=== PATIENT | male | born 1955 | race Caucasian/White ===

== ENCOUNTER → 2016-05-23 | Outpatient (REF) | payer OTHER ==
[2016-05-23 12:16] LABS: ALBUMIN 4.1 GM/DL (3.2-5.2); ALBUMIN/GLOBULIN RATIO 1.46 (1.00-1.93); ALKALINE PHOSPHATASE 60 U/L (45-117); ALT/SGPT 49 U/L (12-78); ANION GAP 8 MEQ/L (8-16); AST/SGOT 19 U/L (15-37); BILIRUBIN,TOTAL 0.5 MG/DL (0.2-1.0); BLOOD UREA NITROGEN 20 MG/DL (7-18); CARBON DIOXIDE LEVEL 30 MEQ/L (21-32); CHLORIDE LEVEL 104 MEQ/L (98-107); CHOLESTEROL LEVEL 165 MG/DL (<200); CREATININE FOR GFR 0.99 MG/DL (0.70-1.30); GLOMERULAR FILTRATION RATE > 60.0 (>56); GLUCOSE, FASTING 98 MG/DL (70-105); POTASSIUM SERUM 4.1 MEQ/L (3.5-5.1); SODIUM LEVEL 142 MEQ/L (136-145); TOTAL PROTEIN 6.9 GM/DL (6.4-8.2); TRIGLYCERIDES LEVEL 143 MG/DL (<150)
== END | disposition home or self-care (01) ==
LOC: M SFHCPLAZ 08:25
PROVIDERS: ATTEND Family Medicine
DX: E78.2 Mixed hyperlipidemia (principal); R73.01 Impaired fasting glucose; N41.1 Chronic prostatitis; E03.9 Hypothyroidism, unspecified
CPT/HCPCS: 36415; 80053; 80061; 82550; 83036; 84443; 86140; G0103

== ENCOUNTER → 2016-10-10 | Outpatient (REF) | payer OTHER ==
[2016-10-10 12:12] LABS: BASO # 0.1 K/mm3 (0.0-0.2); BASO % 1.4 % (0.0-1.0); EOS # 0.4 K/mm3 (0.0-0.50); EOS % 5.2 % (0.0-3.0); LARGE UNSTAINED CELL # 0.2 K/mm3 (0.0-0.4); LYMPH # 1.6 K/mm3 (1.5-4.5); LYMPH % 20.7 % (24.0-44.0); MEAN CORPUSCULAR HEMOGLOBIN 32.2 pg (27.0-33.0); MEAN CORPUSCULAR HGB CONC 35.4 g/dl (32.0-36.5); MONO # 0.6 K/mm3 (0.0-0.8); MONO % 7.8 % (0.0-5.0); NEUTROPHILS # 4.8 K/mm3 (1.8-7.7); NEUTROPHILS % 62.8 % (36.0-66.0); PLATELET COUNT, AUTOMATED 287 k/mm3 (150-450); RED CELL DISTRIBUTION WIDTH 12.9 % (11.5-14.5); WHITE BLOOD COUNT 7.7 K/mm3 (4.0-10.0)
[2016-10-10 12:41] LABS: ALBUMIN 3.7 GM/DL (3.2-5.2); ALBUMIN/GLOBULIN RATIO 1.23 (1.00-1.93); ALKALINE PHOSPHATASE 65 U/L (45-117); ALT/SGPT 37 U/L (12-78); ANION GAP 6 MEQ/L (8-16); AST/SGOT 17 U/L (15-37); BILIRUBIN,TOTAL 0.5 MG/DL (0.2-1.0); BLOOD UREA NITROGEN 22 MG/DL (7-18); CALCIUM LEVEL 8.8 MG/DL (8.5-10.1); CARBON DIOXIDE LEVEL 28 MEQ/L (21-32); CHLORIDE LEVEL 105 MEQ/L (98-107); CREATININE FOR GFR 0.82 MG/DL (0.70-1.30); FREE T4 1.72 NG/DL (0.76-1.46); GLOMERULAR FILTRATION RATE > 60.0 (>56); GLUCOSE, FASTING 91 MG/DL (70-105); POTASSIUM SERUM 3.9 MEQ/L (3.5-5.1); SODIUM LEVEL 139 MEQ/L (136-145); TOTAL PROTEIN 6.7 GM/DL (6.4-8.2)
== END ==
LOC: M SFHCPLAZ 07:55
PROVIDERS: ATTEND Family Medicine
DX: I10 Essential (primary) hypertension (principal); E55.9 Vitamin D deficiency, unspecified; E03.9 Hypothyroidism, unspecified; R73.01 Impaired fasting glucose

== ENCOUNTER → 2017-03-01 | Outpatient (REF) | payer OTHER ==
[2017-03-01 18:05] LABS: FREE T4 0.93 NG/DL (0.76-1.46)
== END ==
LOC: M SFHCPLAZ 11:30
PROVIDERS: ATTEND Family Medicine
DX: E78.2 Mixed hyperlipidemia (principal); E03.9 Hypothyroidism, unspecified; R73.01 Impaired fasting glucose

== ENCOUNTER → 2017-03-04 | Outpatient (CLI) | payer OTHER ==
--- NOTE | 2017-03-04 11:19 | REP ---
Clinical: Left shoulder pain. Technique: Internal rotation, external rotation, and Y view of the left shoulder. Findings: Cortical irregularity and subtle spurring at the acromioclavicular joint is appreciated along with blunting to the glenoid rim. Small periarticular calcifications in the subacromial space on external rotation view is suspected along with decrease subacromial space to approximately 7 mm. No acute fracture dislocation. 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 Signed by Antione Lua MD 03/04/2017 11:11 A
== END ==
LOC: M ADAMS 10:51
PROVIDERS: ATTEND Family Medicine
DX: M75.40 Impingement syndrome of unspecified shoulder (principal)

== ENCOUNTER → 2017-09-10 | Outpatient (REF) | payer OTHER ==
[2017-09-10 21:46] LABS: ALBUMIN 4.2 GM/DL (3.2-5.2); ALKALINE PHOSPHATASE 57 U/L (45-117); ALT/SGPT 38 U/L (12-78); ANION GAP 7 MEQ/L (8-16); AST/SGOT 17 U/L (7-37); BILIRUBIN,TOTAL 0.6 MG/DL (0.2-1.0); BLOOD UREA NITROGEN 19 MG/DL (7-18); C REACTIVE PROTEIN QUANTITATIV < 0.30 MG/DL (0.00-0.30); CALCIUM LEVEL 8.7 MG/DL (8.8-10.2); CARBON DIOXIDE LEVEL 28 MEQ/L (21-32); CHLORIDE LEVEL 107 MEQ/L (98-107); CHOLESTEROL LEVEL 154 MG/DL (<200); CPK CREATINE PHOSPHOKINASE 103 U/L (39-308); CREATININE FOR GFR 0.89 MG/DL (0.70-1.30); FREE T4 0.98 NG/DL (0.76-1.46); GLOMERULAR FILTRATION RATE > 60.0 (>49); GLUCOSE, FASTING 91 MG/DL (70-100); HDL CHOLESTEROL 44 MG/DL (>40); LDL CHOLESTEROL 77.4 MG/DL (<100); NON-HDL-C 110 MG/DL; POTASSIUM SERUM 3.9 MEQ/L (3.5-5.1); PSA SCREENING 1.21 NG/ML (< 4.0); SODIUM LEVEL 142 MEQ/L (136-145); TRIGLYCERIDES LEVEL 163 MG/DL (<150)
[2017-09-10 22:00] LABS: ESTIMATED AVERAGE GLUCOSE 126 MG/DL (60-110)
[2017-09-12 14:17] LABS: INSULIN LEVEL 15.8 uIU/mL (2.6-24.9)
== END ==
LOC: M SFHCADAM 07:59
DX: E78.2 Mixed hyperlipidemia (principal); E55.9 Vitamin D deficiency, unspecified; E03.9 Hypothyroidism, unspecified; R73.01 Impaired fasting glucose; N41.1 Chronic prostatitis

== ENCOUNTER → 2018-08-10 | Outpatient (REF) | payer OTHER ==
[2018-08-10 12:49] LABS: BASO # 0.1 10^3/uL (0.0-0.2); EOS # 0.3 10^3/uL (0.0-0.50); EOS % 2.8 % (0.0-3.0); HEMATOCRIT 47.8 % (42.0-52.0); HEMOGLOBIN 16.2 g/dl (13.5-17.5); LYMPH # 1.7 10^3/uL (1.5-4.5); LYMPH % 18.3 % (24.0-44.0); MEAN CORPUSCULAR HEMOGLOBIN 30.7 pg (27.0-33.0); MEAN CORPUSCULAR HGB CONC 33.9 g/dl (32.0-36.5); MEAN CORPUSCULAR VOLUME 90.7 fl (80.0-96.0); MONO # 0.7 10^3/uL (0.0-0.8); MONO % 7.7 % (0.0-5.0); NEUTROPHILS # 6.6 10^3/uL (1.8-7.7); NEUTROPHILS % 69.8 % (36.0-66.0); PLATELET COUNT, AUTOMATED 311 10^3/uL (150-450); RED BLOOD COUNT 5.27 10^6/uL (4.30-6.10); WHITE BLOOD COUNT 9.4 10^3/uL (4.0-10.0)
[2018-08-10 12:55] LABS: FREE T4 1.2 NG/DL (0.76-1.46); PTH INTACT 32.6 PG/ML (18.5-88.0); THYROID STIMULATING HORMONE 3.02 uIU/ML (0.358-3.740); TOTAL 25(OH) VITAMIN D 27.2 NG/ML (30.0-100.0)
[2018-08-10 12:59] LABS: HEMOGLOBIN A1c 5.9 %
[2018-08-10 19:23] LABS: AMORPHOUS SEDIMENT LARGE (NEGATIVE); APPEARANCE, URINE TURBID (CLEAR); BACTERIA, URINE AUTO NEGATIVE (NEGATIVE); BILIRUBIN, URINE AUTO NEGATIVE (NEGATIVE); BLOOD, URINE BLOOD NEGATIVE (NEGATIVE); COLOR, URINE STRAW (YELLOW); GLUCOSE, URINE (UA) AUTO NEGATIVE (NEGATIVE); KETONE, URINE AUTO NEGATIVE (NEGATIVE); LEUKOCYTE ESTERASE, URINE AUTO NEGATIVE (NEGATIVE); MUCUS, URINE SMALL (NEGATIVE); NITRITE, URINE AUTO NEGATIVE (NEGATIVE); PROTEIN, URINE AUTO NEGATIVE (NEGATIVE); RBC, URINE AUTO 0 /HPF (0-3); SPECIFIC GRAVITY URINE AUTO 1.025 (1.002-1.035); SQUAMOUS EPITHELIAL CELL UR AU 0 /HPF (0-6); UROBILINOGEN, URINE AUTO 0.2 mg/dL (0.0-2.0); WBC, URINE AUTO 0 /HPF (0-3)
[2018-08-10 20:00] LABS: MALB URINE SIEMENS 18.9 MG/L; MAU/CREAT RATIO 10.8 MCG/MG (0.0-30.0)
== END ==
LOC: M SFHCADAM 08:52
PROVIDERS: ATTEND Family Medicine
DX: I10 Essential (primary) hypertension (principal); E03.9 Hypothyroidism, unspecified; R73.01 Impaired fasting glucose; E55.9 Vitamin D deficiency, unspecified

== ENCOUNTER → 2018-09-17 | Outpatient (REF) | payer OTHER | LOC: M LAB REF 13:35 | PROVIDERS: ATTEND Family Medicine | DX: D22.5 Melanocytic nevi of trunk (principal) ==

== ENCOUNTER → 2018-10-27 | Outpatient (REF) | payer OTHER ==
[~2018-10-27] MED LIST: ADV100INH INH; ATOR1TAB21 PO; FLUTISP; RAPA8CAP4 PO; SERT50TA29 PO; SYNT75TA PO; VITA200044 PO; VITA500C19 PO
== END ==
LOC: M LAB REF 12:16 → M LABDRWAD 12:16
PROVIDERS: ATTEND Urology
DX: Z12.5 Encounter for screening for malignant neoplasm of prostate (principal)

== ENCOUNTER → 2019-04-27 | Outpatient (REF) | payer OTHER ==
[2019-04-27 12:52] LABS: ALT/SGPT 37 U/L (12-78); BILIRUBIN,TOTAL 0.4 MG/DL (0.2-1.0); BLOOD UREA NITROGEN 20 MG/DL (7-18); C REACTIVE PROTEIN QUANTITATIV < 0.30 MG/DL (0.00-0.30); CALCIUM LEVEL 8.7 MG/DL (8.8-10.2); CARBON DIOXIDE LEVEL 29 MEQ/L (21-32); CHLORIDE LEVEL 106 MEQ/L (98-107); CHOLESTEROL LEVEL 157 MG/DL (<200); CHOLESTEROL RISK RATIO 3.413 (<5); CPK CREATINE PHOSPHOKINASE 58 U/L (39-308); CREATININE FOR GFR 0.92 MG/DL (0.70-1.30); FREE T4 0.97 NG/DL (0.76-1.46); GLOMERULAR FILTRATION RATE > 60.0 (>49); GLUCOSE, FASTING 87 MG/DL (70-100); HDL CHOLESTEROL 46 MG/DL (>40); LDL CHOLESTEROL 80 MG/DL (<100); NON-HDL-C 111 MG/DL; POTASSIUM SERUM 3.9 MEQ/L (3.5-5.1); SODIUM LEVEL 141 MEQ/L (136-145); TOTAL PROTEIN 6.7 GM/DL (6.4-8.2); TRIGLYCERIDES LEVEL 154 MG/DL (<150)
== END ==
LOC: M SFHCADAM 10:03
PROVIDERS: ATTEND Family Medicine
DX: E78.2 Mixed hyperlipidemia (principal); R73.01 Impaired fasting glucose; E03.9 Hypothyroidism, unspecified

== ENCOUNTER → 2019-05-04 | Outpatient (REF) | payer OTHER | LOC: M LABDRWAD 12:54 | PROVIDERS: ATTEND Urology | DX: R39.12 Poor urinary stream (principal); N40.1 Benign prostatic hyperplasia with lower urinary tract symptoms; Z12.5 Encounter for screening for malignant neoplasm of prostate | CPT/HCPCS: 36415; G0103 ==

== ENCOUNTER 2020-03-23 08:00 | Emergency (ER) | payer OTHER ==
[~2020-03-23] VITALS: Ht 172.7 cm; Wt 98.6 kg
[2020-03-23] MEDS ORDERED: FLUORESCEIN OPHTH 1 MG STRIP XX STA (08:10)
[2020-03-23] MEDS ORDERED: FLUORESCEIN OPHTH 1 MG STRIP OU ONE (08:30)
[2020-03-23] MEDS ORDERED: PHENYLEPHRINE 2.5% OPHTH SOL 2ML OU ONE (09:15)
[2020-03-23] MEDS ORDERED: TROPICAMIDE 0.5% OPHTH SOLN 15 ML OU ONE (09:15)
[2020-03-23 10:50] VITALS: BP 169/96
== END 2020-03-23 10:52 | disposition home or self-care (01) ==
LOC: M ED 08:00
DX: H33.301 Unspecified retinal break, right eye (principal); H01.003 Unspecified blepharitis right eye, unspecified eyelid; H01.006 Unspecified blepharitis left eye, unspecified eyelid; H57.89 Other specified disorders of eye and adnexa; E78.5 Hyperlipidemia, unspecified; E03.9 Hypothyroidism, unspecified; Z91.018 Allergy to other foods; Z79.899 Other long term (current) drug therapy

== ENCOUNTER → 2020-05-11 | Outpatient (REF) | payer OTHER | LOC: M LABDRWAD 12:14 | PROVIDERS: ATTEND Urology | DX: Z12.5 Encounter for screening for malignant neoplasm of prostate (principal) | CPT/HCPCS: 36415; G0103 ==

== ENCOUNTER → 2020-07-31 | Outpatient (REF) | payer OTHER ==
[2020-07-31 15:27] LABS: HEMOGLOBIN A1c 5.7 %
[2020-07-31 17:13] LABS: ALBUMIN 4.1 GM/DL (3.2-5.2); ALT/SGPT 43 U/L (12-78); BILIRUBIN,TOTAL 0.6 MG/DL (0.2-1.0); BLOOD UREA NITROGEN 19 MG/DL (7-18); CALCIUM LEVEL 9.2 MG/DL (8.8-10.2); CARBON DIOXIDE LEVEL 30 MEQ/L (21-32); CHLORIDE LEVEL 106 MEQ/L (98-107); CREATININE FOR GFR 0.78 MG/DL (0.70-1.30); FREE T4 1.01 NG/DL (0.76-1.46); GLOMERULAR FILTRATION RATE > 60.0 (>49); GLUCOSE, FASTING 87 MG/DL (70-100); POTASSIUM SERUM 4.2 MEQ/L (3.5-5.1); SODIUM LEVEL 141 MEQ/L (136-145); TOTAL PROTEIN 6.9 GM/DL (6.4-8.2)
[2020-07-31 17:15] LABS: PTH INTACT 30.7 PG/ML (18.5-88.0)
== END ==
LOC: M SFHCPLAZ 07:55 → M SFHCADAM 08:21
PROVIDERS: ATTEND Family Medicine
DX: R73.01 Impaired fasting glucose (principal); E55.9 Vitamin D deficiency, unspecified; E03.9 Hypothyroidism, unspecified; Z12.5 Encounter for screening for malignant neoplasm of prostate
CPT/HCPCS: 80053; 82306; 83036; 83525; 83970; 84439; 84443; G0103

== ENCOUNTER 2021-01-30 11:27 | Emergency (ER) | payer OTHER ==
[~2021-01-30] VITALS: Ht 172.7 cm; Wt 97.7 kg
--- OUTSIDE RECORDS SUMMARY | 2021-01-30 11:34 | CCD | Continuity of Care Document ---
Author Author Jagdeep WEBSTER F.N.P. Organization Unknown Address [address] [place] [address] Phone [phone] Care Team Providers Care Pit Operator Name Role Phone Cameron Tilley MD AUTM [phone] Problems Description No Information Available Social History Type Date Description Comments Sex Unknown ETOH Use Social Drinker Tobacco Use Start: Unknown Patient has never smoked Sun Exposure moderate amount of sun exposure Sun Exposure Tanning bed - Has used in past. No longer using. Sun Exposure Has experienced blistering from sunburns Sun Exposure Uses > 30 SPF Allergies and adverse reactions Description No Known Drug Allergies Medications Active Medications SIG Qnty Indications Ordering Provide r Date Lipitor Unknown Synthroid 25mcg Tablets Unknown Vitamin D3 25mcg (1000 Ut) Chewtabs Unknown Vitamin C Unknown Immunizations Description No Information Available Vital Signs Date Vital Result Comment 01/04/2021 8:28am BP Systolic 134 mmHg BP Diastolic 85 mmHg Heart Rate 68 /min Weight 210.00 lb 07/21/2019 9:35am BP Systolic 159 mmHg BP Diastolic 109 mmHg Results Description No Information Available Procedures Date Code Description Status 01/04/2021 87469 Office/Outpatient Established Mo d MDM 30-39 Min Completed Medical Devices Description No Information Available Encounters Type Date Location Provider Dx Diagnosis Office Visit 01/04/2021 8:30a Main Office Nena Webster F.N.P. L57.0 Actinic keratosis D22.5 Melanocytic nevi of trunk D22.72 Melanocytic nevi of left low er limb, including hip D22.71 Melanocytic nevi of right lo wer limb, including hip L81.4 Other melanin hyperpigmentat ion Z85.828 Personal history of other ma lignant neoplasm of skin Z08 Encntr for follow-up exam af ter trtmt for malignant neoplasm Assessments Date Code Description Provider 01/04/2021 L57.0 Actinic keratosis Nena irizarry, F.N.P. 01/04/2021 D22.5 Melanocytic nevi of trunk Dolores Webster F.N.P. 01/04/2021 D22.72 Melanocytic nevi of left lower l imb, including hip Nena Webster, F.N.P. 01/04/2021 D22.71 Melanocytic nevi of right lower limb, including hip Nena Webster, F.N.P. 01/04/2021 L81.4 Other melanin hyperpigmentation Nena Webster F.N.P. 01/04/2021 Z85.828 Personal history of other malign ant neoplasm of skin Nena Webster F.N.P. 01/04/2021 Z08 Encounter for follow -up examination after completed treatment for malignant neoplasm Nena Webster F.N.P. Plan of Treatment Future Appointment(s):* 01/08/2022 8:15 am - Nena Webster F.N.P. at Main Office 01/04/2021 - Nena Webster F.N.P.* L57.0 Actinic keratosis* Comments:* Discussed actinic keratoses are precancerous proliferations that occur within sun damaged skin. If untreated, a small subset of AK's can develop into SCC's. No treatment needed at this time, monitor for now. * D22.5 Melanocytic nevi of trunk* Comments:* Nevi on trunk appear healthy. Monitor for changes. Sun protection and sunscreen use discussed. Literature given on how to perform monthly self skin exam. Should any moles change in shape or color, itch, bleed or burn, pt will contact office for evaluation sooner than their interval appointment. * D22.72 Melanocytic nevi of left lower limb, including hip* Comments:* Nevus on L leg appears healthy. Monitor for changes. * D22.71 Melanocytic nevi of right lower limb, including hip* Comments:* Nevus on R foot and R leg appear healthy. Monitor for changes. * L81.4 Other melanin hyperpigmentation* Comments:* Solar lentigines - reassurance.Discussed that solar lentignes appear from the sun that was received years ago.Sunscreen use and sun protection discussed. * Z85.828 Personal history of other malignant neoplasm of skin* Comments:* Continue to monitor for recurrence. * Z08 Encounter for follow-up examination after completed treatment for malignant neoplasm* Comments:* Reviewed sign and symptoms of skin cancer, including ABCDE's of melanoma.Discussed the importance of using a sunscreen with Zinc Oxide or Titanium Dioxide and to reapply every 2-3 hours.Discussed importance of avoidance of tanning beds and excessive UV exposure.Discussed the importance of monthly self skin examinations.Recommended a skin cancer screening on a yearly basis.Discussed increased risk of skin cancer due to sunburn. See above. * Follow up:* Yearly/PRN - [facility] Functional Status Description No Information Available Mental Status Description No Information Available Referrals Description No Information Available
--- OUTSIDE RECORDS SUMMARY | 2021-01-30 11:34 | CCD ---
Author Author [facility] Organization [facility] Address Unknown Phone Unavailable Care Team Providers Care Drain Tiler Name Role Phone Scottie DOWNS MD Unavailable Unavailable Scottie DOWNS MD Unavailable Unavailable Scottie DOWNS MD Unavailable Unavailable Scottie DOWNS MD Unavailable Unavailable Scottie DOWNS MD Unavailable Unavailable Scottie DOWNS MD Unavailable Unavailable Scottie DOWNS MD Unavailable Unavailable Scottie DOWNS MD Unavailable Unavailable Scottie DOWNS MD Unavailable Unavailable Scottie DOWNS MD Unavailable Unavailable Scottie DOWNS MD Unavailable Unavailable Scottie DOWNS MD Unavailable Unavailable Scottie DOWNS MD Unavailable Unavailable Scottie DOWNS MD Unavailable Unavailable Scottie DOWNS MD Unavailable Unavailable Scottie DOWNS MD Unavailable Unavailable Scottie DOWNS MD Unavailable Unavailable Scottie DOWNS MD Unavailable Unavailable Scottie DOWNS MD Unavailable Unavailable Scottie DOWNS MD Unavailable Unavailable Scottie DOWNS MD Unavailable Unavailable Scottie DOWNS MD Unavailable Unavailable Scottie DOWNS MD Unavailable Unavailable Scottie DOWNS MD Unavailable Unavailable Scottie DOWNS MD Unavailable Unavailable Scottie DOWNS MD Unavailable Unavailable Scottie DOWNS MD Unavailable Unavailable Scottie DOWNS MD Unavailable Unavailable Scottie DOWNS MD Unavailable Unavailable Scottie DOWNS MD Unavailable Unavailable Scottie DOWNS MD Unavailable Unavailable Scottie DWONS MD Unavailable Unavailable Scottie DOWNS MD Unavailable Unavailable Scottie DOWNS MD Unavailable Unavailable Scottie ODWNS MD Unavailable Unavailable Scottie DOWNS MD Unavailable Unavailable Scottie DOWNS MD Unavailable Unavailable Scottie DOWNS MD Unavailable Unavailable Scottie DOWNS MD Unavailable Unavailable Scottie DOWNS MD Unavailable Unavailable Scottie DOWNS MD Unavailable Unavailable Scottie DOWNS MD Unavailable Unavailable Scottie DOWNS MD Unavailable Unavailable Scottie DOWNS MD Unavailable Unavailable Scottie DOWNS MD Unavailable Unavailable Scottie DOWNS MD Unavailable Unavailable Scottie DOWNS MD Unavailable Unavailable Scottie DOWNS MD Unavailable Unavailable Scottie DOWNS MD Unavailable Unavailable Scottie DOWNS MD Unavailable Unavailable Scottie DOWNS MD Unavailable Unavailable Scottie DOWNS MD Unavailable Unavailable Scottie DOWNS MD Unavailable Unavailable Scottie DOWNS MD Unavailable Unavailable Scottie DOWNS MD Unavailable Unavailable Scottie DOWNS MD Unavailable Unavailable Scottie DOWNS MD Unavailable Unavailable Scottie DOWNS MD Unavailable Unavailable Scottie DOWNS MD Unavailable Unavailable Scottie DOWNS MD Unavailable Unavailable Scottie DOWNS MD Unavailable Unavailable Scottie DOWNS MD Unavailable Unavailable Scottie DOWNS MD Unavailable Unavailable Scottie DOWNS MD Unavailable Unavailable Scottie DOWNS MD Unavailable Unavailable Scottie DOWNS MD Unavailable Unavailable Scottie DOWNS MD Unavailable Unavailable Scottie DOWNS MD Unavailable Unavailable Scottie DOWNS MD Unavailable Unavailable Scottie DOWNS MD Unavailable Unavailable Scottie DOWNS MD Unavailable Unavailable Scottie DOWNS MD Unavailable Unavailable Scottie DOWNS MD Unavailable Unavailable Scottie DOWNS MD Unavailable Unavailable Scottie DOWNS MD Unavailable Unavailable Scottie DOWNS MD Unavailable Unavailable Scottie DOWNS MD Unavailable Unavailable Scottie DOWNS MD Unavailable Unavailable Scottie DOWNS MD Unavailable Unavailable Scottie DOWNS MD Unavailable Unavailable Scottie DOWNS MD Unavailable Unavailable Scottie DOWNS MD Unavailable Unavailable Scottie DOWNS MD Unavailable Unavailable Scottie DOWNS MD Unavailable Unavailable Scottie DOWNS MD Unavailable Unavailable Scottie DOWNS MD Unavailable Unavailable Scottie DOWNS MD Unavailable Unavailable Scottie DOWNS MD Unavailable Unavailable Scottie DOWNS MD Unavailable Unavailable Scottie DOWNS MD Unavailable Unavailable Scottie DOWNS MD Unavailable Unavailable Scottie DOWNS MD Unavailable Unavailable [place], Sara BOSTON CUTTER Unavailable Unavailable [place], Sara BOSTON CUTTER Unavailable Unavailable [place], Sara BOSTON CUTTER Unavailable Unavailable [place], Sara BOSTON CUTTER Unavailable Unavailable [place], Sara BOSTON CUTTER Unavailable Unavailable [place], Sara BOSTON CUTTER Unavailable Unavailable [place], Sara BOSTON CUTTER Unavailable Unavailable [place], Sara BOSTON CUTTER Unavailable Unavailable [place], Sara BOSTON CUTTER Unavailable Unavailable [place], Sara BOSTON CUTTER Unavailable Unavailable [place], Sara BOSTON CUTTER Unavailable Unavailable [place], Sara BOSTON CUTTER Unavailable Unavailable [place], Sara BOSTON CUTTER Unavailable Unavailable [place], Sara BOSTON CUTTER Unavailable Unavailable [place], Sara BOSTON CUTTER Unavailable Unavailable [place], Sara BOSTON CUTTER Unavailable Unavailable [place], Sara BOSTON CUTTER Unavailable Unavailable [place], Sara BOSTON CUTTER Unavailable Unavailable [place], Asra BOSTON CUTTER Unavailable Unavailable [place], Sara BOSTON CUTTER Unavailable Unavailable [place], Sara BOSTON CUTTER Unavailable Unavailable [place], Sara BOSTON CUTTER Unavailable Unavailable [place], Sara BOSTON CUTTER Unavailable Unavailable [place], Sara BOSTON CUTTER Unavailable Unavailable [place], Sara BOSTON CUTTER Unavailable Unavailable [place], Sara BOSTON CUTTER Unavailable Unavailable [place], Sara BOSTON CUTTER Unavailable Unavailable [place], Sara BOSTON CUTTER Unavailable Unavailable [place], Sara BOSTON CUTTER Unavailable Unavailable [place], Saar BOSTON CUTTER Unavailable Unavailable [place], Sraa BOSTON CUTTER Unavailable Unavailable [place], Sara BOSTON CUTTER Unavailable Unavailable [place], Sara BOSTON CUTTER Unavailable Unavailable [place], Sara BOSTON CUTTER Unavailable Unavailable [place], Sara BOSTON CUTTER Unavailable Unavailable [place], Saar BOSTON CUTTER Unavailable Unavailable MACIAS, G EDWARD RPA Unavailable Unavailable MACIAS, G EDWARD RPA Unavailable Unavailable MACIAS, G EDWARD RPA Unavailable Unavailable MACIAS, G EDWARD RPA Unavailable Unavailable MACIAS, G EDWARD RPA Unavailable Unavailable MACIAS, G EDWARD RPA Unavailable Unavailable MACIAS, G EDWARD RPA Unavailable Unavailable MACIAS, G EDWARD RPA Unavailable Unavailable MACIAS, G EDWARD RPA Unavailable Unavailable MACIAS, G EDWARD RPA Unavailable Unavailable MACIAS, G EDWARD RPA Unavailable Unavailable MACIAS, G EDWARD RPA Unavailable Unavailable MACIAS, G EDWARD RPA Unavailable Unavailable MACIAS, G EDWARD RPA Unavailable Unavailable MACIAS, G EDWARD RPA Unavailable Unavailable MACIAS, G EDWARD RPA Unavailable Unavailable MACIAS, G EDWARD RPA Unavailable Unavailable MACIAS, G EDWARD RPA Unavailable Unavailable MACIAS, G EDWARD RPA Unavailable Unavailable MACIAS, G EDWARD RPA Unavailable Unavailable MACIAS, G EDWARD RPA Unavailable Unavailable MACIAS, G EDWARD RPA Unavailable Unavailable MACIAS, G EDWARD RPA Unavailable Unavailable MACIAS, G EDWARD RPA Unavailable Unavailable MACIAS, G EDWARD RPA Unavailable Unavailable MACIAS, G EDWARD RPA Unavailable Unavailable MACIAS, G EDWARD RPA Unavailable Unavailable MACIAS, G EDWARD RPA Unavailable Unavailable MACIAS, G EDWARD RPA Unavailable Unavailable MACIAS, G EDWARD RPA Unavailable Unavailable MACIAS, G EDWARD RPA Unavailable Unavailable MACIAS, G EDWARD RPA Unavailable Unavailable MACIAS, G EDWARD RPA Unavailable Unavailable MACIAS, G EDWARD RPA Unavailable Unavailable MACIAS, G EDWARD RPA Unavailable Unavailable MACEY, A PREET DO Unavailable Unavailable MACEY, A PREET DO Unavailable Unavailable MACEY, A PREET DO Unavailable Unavailable MACEY, A PREET DO Unavailable Unavailable MACEY, A PREET DO Unavailable Unavailable MACYE, A PREET DO Unavailable Unavailable MACEY, A PREET DO Unavailable Unavailable MACEY, A PREET DO Unavailable Unavailable MACEY, A PREET DO Unavailable Unavailable MACEY, A PREET DO Unavailable Unavailable MACEY, A PREET DO Unavailable Unavailable MACEY, A PREET DO Unavailable Unavailable MACEY, A PREET DO Unavailable Unavailable MACEY, A PREET DO Unavailable Unavailable MACEY, A PREET DO Unavailable Unavailable MACEY, A PREET DO Unavailable Unavailable MACEY, A PREET DO Unavailable Unavailable MACEY, A PREET DO Unavailable Unavailable MACEY, A PREET DO Unavailable Unavailable MACEY, A PREET DO Unavailable Unavailable MACEY, A PREET DO Unavailable Unavailable MACEY, A PREET DO Unavailable Unavailable Re-disclosure Warning The records that you are about to access may contain information from federally-assisted alcohol or drug abuse programs. If such information is present, then the following federally mandated warning applies: This information has been disclosed to you from records protected by federal confidentiality rules (42 CFR part 2). The federal rules prohibit you from making any further disclosure of this information unless further disclosure is expressly permitted by the written consent of the person to whom it pertains or as otherwise permitted by 42 CFR part 2. A general authorization for the release of medical or other information is NOT sufficient for this purpose. The Federal rules restrict any use of the information to criminally investigate or prosecute any alcohol or drug abuse patient.The records that you are about to access may contain highly sensitive health information, the redisclosure of which is protected by Article 27-F of the [facility] Public Health law. If you continue you may have access to information: Regarding HIV / AIDS; Provided by facilities licensed or operated by the [facility] Office of Mental Health; or Provided by the [facility] Office for People With Developmental Disabilities. If such information is present, then the following [facility] mandated warning applies: This information has been disclosed to you from confidential records which are protected by state law. State law prohibits you from making any further disclosure of this information without the specific written consent of the person to whom it pertains, or as otherwise permitted by law. Any unauthorized further disclosure in violation of state law may result in a fine or prison sentence or both. A general authorization for the release of medical or other information is NOT sufficient authorization for further disc losure. Allergies and Adverse Reactions Type Description Substance Reaction Status Data Source(s ) Allergy to substance No Known Allergies No known allergies (situation ) BEE (Diego Jacinto MD [facility]) Family History Family Member Name Family Member Gender Family Member Status Date o f Status Description Data Source(s) Unknown Female Problem [facility] ([facility]) Unknown Unknown Problem MEDENT ([facility], [facility]) Encounters Encounter Providers Location Date Indications Data Source(s ) Outpatient Attender: Nena Godinez [facility] Main Office 01/04/2021 08:30:00 AM EDT MEDENT ([facility]) Outpatient Attender: GENNY MACIAS RPA 11/10 05:55:23 PM EDT - 11/10/2020 07:20:51 PM EDT [facility]Tap ([facility] ) Unknown [address] [place] [address] 08/17/2020 12:00:00 AM EDT eCW1 ([facility]) Unknown [address] [facility] [address] [place] [address] 08/14/2020 12:00:00 AM EDT eCW1 ([facility]) Outpatient [address] [place] [address] 08/03/2020 12:00:00 AM EDT eCW1 ([facility]) [place] [address] [facility] [place] [address] 07/06/2020 12:00:00 AM EDT eCW1 ([facility]) Outpatient Attender: MIGUEL ÁNGEL Espinoza/ [facility] 05/23/2020 08:15:00 AM EST [facility] [place] [address] [facility] [facility] [address] 04/18/2020 12:00:00 AM EST eCW1 ([facility]) Outpatient<td ID="encounterTypeDescripti onID0">EMERGENCY RM FOLU</td><td>Preet Galvan DO</td><td>Diego Carr MD [facility]</td><td>03/28/2020</td><td>1:05PM</td><td>1:56PM</td><td><content ID="encounterDiagnosisID0-0">Cataract Senile Nuclear</content>, <content ID="encounterDiagnosisID0-1">Vitreous Disorders Degeneration</content>, <content ID="encounterDiagnosisID0-2">Chorioretinal Scar</content>, <content ID="encounterDiagnosisID0-3">Retinal Tear</content></td> Attender: PREET Mi MD [facility] 03/28/2020 01:05:00 PM EST - 03/28/2020 01:56:00 PM EST Retinal TearChorioretinal ScarVitreous D isorders DegenerationCataract Senile Nuclear LYNN (Diego Jacinto MD [facility]) Retinal Tear 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 Immunizations Vaccine Date Status Description Data Source(s) COVID-19 dose #2 given elsewhere Unspecified 07/14/2020 10:0 4:00 AM EDT completed eCW1 ([facility]) COVID-19 dose #2 given elsewhere Unspecified 07/14/2020 10:0 4:00 AM EDT completed eCW1 ([facility]) COVID-19 dose #2 given elsewhere Unspecified 07/14/2020 10:0 4:00 AM EDT completed eCW1 ([facility]) COVID-19 VACCINE Pfizer 07/14/2020 12:00:00 AM EDT completed NYSIIS Vaccine Series Complete: YESThis Data wa s Submitted to [facility]. COVID-19 dose #1 given elsewhere Unspecified 06/30/2020 10:0 5:00 AM EDT completed eCW1 ([facility]) COVID-19 dose #1 given elsewhere Unspecified 06/30/2020 10:0 5:00 AM EDT completed eCW1 ([facility]) COVID-19 dose #1 given elsewhere Unspecified 06/30/2020 10:0 5:00 AM EDT completed eCW1 ([facility]) COVID-19 VACCINE Pfizer 06/23/2020 12:00:00 AM EST completed NYSIIS Vaccine Series Complete: NOThis Data was Submitted to [facility]. Medications Medication Brand Name Start Date Product Form Dose Route Admi nistrative Instructions Pharmacy Instructions Status Indications Reaction Description Data Source(s) 0.12 % 01/09/2021 12:00:00 AM EDT mouthwash 473 RINSE MOUTH TWO TIMES A DAY DIRECTED RINSE MOUTH TWO TIMES A DAY DIRECTED SOLD: 01/09/2021 [facility] Acetaminophen 325 MG / Hydrocodone Bitartrate 5 MG Ora l Tablet 5-325 mg HYDROCODONE/ACETAMINOPHEN 01/09/2021 12:00:00 AM EDT tablet 20 TAKE 1 TO 2 TABLETS BY MOUTH IMMEDIATELY THEN 1 TO 2 TABLETS EVERY 4 TO 6 HOURS NEEDED FOR PAIN MAXIMUM DAILY DOSE = 5 TABLETS TAKE 1 TO 2 TABLETS BY MOUTH IMMEDIATELY THEN 1 TO 2 TABLETS EVERY 4 TO 6 HOURS NEEDED FOR PAIN MAXIMUM DAILY DOSE = 5 TABLETS SOLD: 01/09/2021 [facility] 500 mg 01/09/2021 12:00:00 AM EDT capsule 30 TAKE ONE CAPSULE BY MOUTH THREE TIMES A DAY UNTIL GONE TAKE ONE CAPSULE BY MOUTH THREE TIMES A DAY UNTIL GONE SOLD: 01/09/2021 [facility] Rapaflo 0.4 MG Oral Tablet Rapaflo 0.4 MG Oral Tablet 2019 12:00:00 AM EST 1 active Rapaflo LYNN (Diego Jacinto MD [facility]) atorvastatin 10 MG Oral Tablet [Lipitor] Lipitor 10 MG Oral Tablet Lipitor 10 MG Oral Tablet 03/28/2020 12:00:00 AM EST 1 activ e atorvastatin 10 MG Oral Tablet [Lipitor] LYNN (Diego Jacinto MD [facility]) Insurance Providers Payer name Policy type / Coverage type Policy ID Covered republican ID Covered republican's relationship to solitario Policy Solitario Plan Information [facility] Health Plan Health Maintenance Organization (HMO) Referrals Req uired [id number] Family Dependent Referrals Required [facility] [id number] Self [id number] [facility] [facility] [employer] [id number] Self [id number] ANSI-Commercial [id number] ANSI-Commercial [id number] ANSI-Commercial [id number] ANSI-Commercial [id number] ANSI-Commercial [id number] ANSI-Commercial [id number] ANSI-Commercial [id number] ANSI-Commercial [id number] [facility] Commercial [id number] Family Dependent [id number] [facility] HEALTH CARE O [id number] S [id number] [facility] Commercial [id number] Family Dependent THAIS CAN Y [id number] SP [id number] [facility] HEALTHCARE COMM HMO [id number] S [id number] P HEALTHCARE COMM O [id number] S [id number] [facility] HEALTH CARE P UNAVAILABLE S UN AVAILABLE [id number] 500 [facility] HEALTH CARE [id number] SP [id number] ANSI-Commercial [id number] Problems, Conditions, and Diagnoses Code Display Name Description Problem Type Effective Dates Data Source(s) M72.0 [id number] Dupuytren contracture Problem 08/03/2020 12: 00:00 AM EDT eCW1 ([facility]) N40.1 [id number] Benign prostatic hyperplasia wit h lower urinary tract symptoms Problem 08/03/2020 12:00:00 AM EDT [facility]CW[facility] [id number] Erectile dysfunction Erectile dysfunction Problem 05/23/2020 12:00:00 AM EST MEDENT ([facility]) 379.21 Vitreous Disorders Degeneration Vitreous Disorders Deg eneration Problem 03/28/2020 12:00:00 AM EST LYNN (Diego Jacinto MD [facility]) 366.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 Proble m 03/28/2020 12:00:00 AM EST LYNN (Diego Jacinto MD [facility]) 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 Bailon 03/23/2020 Surgical / procedural history Bicep Tendon Tear, Lower Back rods inserts 2013, Laser for retinal tear in the right eye by Dr. Bailon 03/23/2020 03/28/2020 12:00:00 AM EST LYNN (Diego Jacinto MD [facility]) Intermediate Eye Exam Established Patient Intermediate Eye Exam Established Patient 03/28/2020 12:00:00 AM EST LYNN (Calvin Jacinto MD [facility]) Results ID Date Data Source [id number] 05/11/2020 09:55:00 AM EST [facility] ([facility]) Name Value Range Interpretation Code Description Data Lesli rce(s) Supporting Document(s) Prostate specific Ag [Mass/volume] in Serum or Plasma 1.47 ng/mL MEDENT ([facility]) The PSA assay is performed on the i2weta analyzer by [employer] sandwich chemiluminescent immunoassay and should not be compared interchangeably with other methods. It should not be used alone as a screening test or diagnosis for the presence or absence of malignant disease. Predictions of disease recurrence should not be based solely on values obtained from serial patient serum values. Procedure Social History Code Duration Value Status Description Data Source(s ) Smoking 08/03/2020 12:00:00 AM EDT Never Smoker completed Never S moker eCW1 ([facility]) Smoking 08/03/2020 12:00:00 AM EDT Never Smoker completed Never S moker eCW1 ([facility]) Smoking 08/03/2020 12:00:00 AM EDT Never Smoker completed Never S moker eCW1 ([facility]) Smoking 05/23/2020 12:00:00 AM EST Never Smoked Cigarettes com pleted Never Smoked Cigarettes MEDENT ([facility]) Smoking 03/28/2020 02:02:34 PM EST Never smoked tobacco (findi ng) completed Never smoked tobacco (finding) LYNN (Diego Jacinto MD [facility]) Vital Signs ID Date Data Source UNK Name Value Range Interpretation Code Description Data Source(s) Systolic blood pressure 134 mm[Hg] 134 mm[Hg] M EDENT ([facility]) Diastolic blood pressure 85 mm[Hg] 85 mm[Hg] MEDENT ([facility]) Heart rate 68 /min 68 /min MEDENT ([facility]) Body weight 210.00 [lb_av] 210.00 [lb_av] MEDEN T ([facility]) Body weight 207 [lb_av] 207 [lb_av] eCW1 ([facility]) Body height 65 [in_i] 65 [in_i] eCW1 ([facility]) Body mass index (BMI) [Ratio] 34.44 kg/m2 34.44 kg/m2 W1 ([facility]) Heart rate 97 /min 97 /min eCW1 ([facility]) Respiratory rate 20 /min 20 /min eCW1 ([facility]) Body temperature 97.3 [degF] 97.3 [degF] eCW1 ( [facility]) Systolic blood pressure 142 mm[Hg] 142 mm[Hg] e CW1 ([facility]) Diastolic blood pressure 90 mm[Hg] 90 mm[Hg] eCW1 ([facility]) Body height 68 [in_i] 68 [in_i] MEDENT ([facility] 5'8" Body weight 210.00 [lb_av] 210.00 [lb_av] MEDEN T ([facility]) Body weight 95.256 kg 95.256 kg [facility] ([facility]) Body mass index (BMI) [Ratio] 31.9 kg/m2 31.9 k g/m2 MEDENT ([facility])
[2021-01-30] MEDS ORDERED: ADV100INH (11:47)
--- NOTE | 2021-01-30 12:40 | REPVR ---
PROCEDURE INFORMATION: Exam: CT Head Without Contrast Exam date and time: 01/30/2021 12:20 PM Age: 65 years old Clinical indication: Pain; Headache; Additional info: Trauma TECHNIQUE: Imaging protocol: Computed tomography of the head without contrast. Radiation optimization: All CT scans at this facility use at least one of these dose optimization techniques: automated exposure control; mA and/or kV adjustment per patient size (includes targeted exams where dose is matched to clinical indication); or iterative reconstruction. COMPARISON: No relevant prior studies available. FINDINGS: Brain: Normal. No hemorrhage. Unremarkable white matter. No mass effect. Cerebral ventricles: No ventriculomegaly. Paranasal sinuses: Mucous retention cyst in right maxillary sinus. Mild mucosal thickening of the ethmoidal air cells. Mastoid air cells: Visualized mastoid air cells are well aerated. Bones/joints: Unremarkable. No acute fracture. Soft tissues: Unremarkable. IMPRESSION: No acute intracranial abnormality. Sinus disease as described above. Electronically signed by: Pia Johnston On 01/30/2021 12:39:35 PM
--- NOTE | 2021-01-30 12:42 | REPVR ---
PROCEDURE INFORMATION: Exam: CT Cervical Spine Without Contrast Exam date and time: 01/30/2021 12:20 PM Age: 65 years old Clinical indication: Neck pain; Additional info: Trauma TECHNIQUE: Imaging protocol: Computed tomography images of the cervical spine without contrast. Radiation optimization: All CT scans at this facility use at least one of these dose optimization techniques: automated exposure control; mA and/or kV adjustment per patient size (includes targeted exams where dose is matched to clinical indication); or iterative reconstruction. COMPARISON: No relevant prior studies available. FINDINGS: Bones/joints: No acute fracture. Mild anterolisthesis of C4 on C5. Multilevel degenerative changes with anterior osteophyte formation, loss of disc spaces, and facet joint arthropathy. Discs/Spinal canal/Neural foramina: Posterior disc osteophyte formation at multiple levels causing mild central spinal canal stenosis most marked at the level of C6/C7. Lungs: Lung apices are normal. Soft tissues: Unremarkable. IMPRESSION: No acute finding. Electronically signed by: Pia Johnston On 01/30/2021 12:41:55 PM
--- OUTSIDE RECORDS SUMMARY | 2021-01-30 12:55 | CCD ---
Author Author [facility] Organization [facility] Address Unknown Phone Unavailable Care Team Providers Care Mold Preparer Name Role Phone Scottie DOWNS MD Unavailable [...] Unavailable Scottie DOWNS MD Unavailable Unavailable Scottie DONWS MD Unavailable Unavailable Scottie DOWNS MD Unavailable Unavailable Scottie DOWNS MD Unavailable Unavailable Scottie DOWNS MD Unavailable Unavailable Scottie DOWNS MD Unavailable Unavailable Scottie DOWNS MD Unavailable Unavailable Scottie DOWNS MD Unavailable Unavailable Scottie DOWNS MD Unavailable Unavailable Scottie DOWNS MD Unavailable Unavailable Scottie DOWNS MD Unavailable Unavailable Scottie DOWNS MD Unavailable Unavailable Scottie DOWNS MD Unavailable Unavailable Scottie DOWNS MD Unavailable Unavailable [place], Sara CRYSTAL LAPPER Unavailable Unavailable [place], Sara CRYSTAL LAPPER Unavailable Unavailable [place], Sara CRYSTAL LAPPER Unavailable Unavailable [place], Sara CRYSTAL LAPPER Unavailable Unavailable [place], Sara CRYSTAL LAPPER Unavailable Unavailable [place], Sara CRYSTAL LAPPER Unavailable Unavailable [place], Sara CRYSTAL LAPPER Unavailable Unavailable [place], Asra CRYSTAL LAPPER Unavailable Unavailable [place], Sara CRYSTAL LAPPER Unavailable Unavailable [place], Sara CRYSTAL LAPPER Unavailable Unavailable [place], Sara CRYSTAL LAPPER Unavailable Unavailable [place], Sara CRYSTAL LAPPER Unavailable Unavailable [place], Sara CRYSTAL LAPPER Unavailable Unavailable [place], Sara CRYSTAL LAPPER Unavailable Unavailable [place], Sara CRYSTAL LAPPER Unavailable Unavailable [place], Sara CRYSTAL LAPPER Unavailable Unavailable [place], Sara CRYSTAL LAPPER Unavailable Unavailable [place], Sara CRYSTAL LAPPER Unavailable Unavailable [place], Sara CRYSTAL LAPPER Unavailable Unavailable [place], Sara CRYSTAL LAPPER Unavailable Unavailable [place], Sara CRYSTAL LAPPER Unavailable Unavailable [place], Sara CRYSTAL LAPPER Unavailable Unavailable [place], Sara CRYSTAL LAPPER Unavailable Unavailable [place], Sara CRYSTAL LAPPER Unavailable Unavailable [place], Sara CRYSTAL LAPPER Unavailable Unavailable [place], Sara CRYSTAL LAPPER Unavailable Unavailable [place], Sara CRYSTAL LAPPER Unavailable Unavailable [place], Sara CRYSTAL LAPPER Unavailable Unavailable [place], Sara CRYSTAL LAPPER Unavailable Unavailable [place], Sara CRYSTAL LAPPER Unavailable Unavailable [place], Sara CRYSTAL LAPPER Unavailable Unavailable [place], Sara CRYSTAL LAPPER Unavailable Unavailable [place], Sara CRYSTAL LAPPER Unavailable Unavailable [place], Sara CRYSTAL LAPPER Unavailable Unavailable [place], Sara CRYSTAL LAPPER Unavailable Unavailable [place], Sara CRYSTAL LAPPER Unavailable Unavailable MACIAS, G EDWARD RPA Unavailable [...] is protected by Article 27-F of the [facility] Public Health law. If you continue you may have access to information: Regarding HIV / AIDS; Provided by facilities licensed or operated by the [facility] Office of Mental Health; or Provided by the [facility] Office for People With Developmental Disabilities. If such information is present, then the following [facility] mandated warning applies: This information has been [...] law may result in a fine or mcfp sentence or both. A general authorization for the release of medical or other information is NOT sufficient authorization for further disc losure. Allergies and Adverse Reactions Type Description Substance Reaction Status Data Source(s ) Allergy to substance No Known Allergies No known allergies (situation ) [place]ANDE (Diego Jacinto MD [facility]) Family History Family Member Name Family Member Gender Family Member Status Date o f Status Description Data Source(s) Unknown Female Problem [facility] ([facility]) Unknown Unknown Problem MEDENT ([facility], [facility]) Encounters Encounter Providers Location Date Indications Data Source(s ) Outpatient Attender: Nena Godinez [facility] Main Office 01/04/2021 08:30:00 AM EDT MEDENT ([facility]) Outpatient Attender: GENNY MACIAS RPA 11/10 05:55:23 PM EDT - 11/10/2020 07:20:51 PM EDT [facility] ([facility] ) Unknown [address] [address] 08/17/2020 12:00:00 AM EDT eCW1 ([facility]) Unknown [address] [facility] [address] [place] [address] 08/14/2020 12:00:00 AM EDT eCW1 ([facility]) Outpatient [address] [address] 08/03/2020 12:00:00 AM EDT eCW1 ([facility]) Unknown [address] [facility] [place] [address] 07/06/2020 12:00:00 AM EDT eCW1 ([facility]) Outpatient Attender: MIGUEL ÁNGEL Espinoza/ [facility] 05/23/2020 08:15:00 AM EST [facility] ([facility] [place] [place] [address] [facility] [address] 04/18/2020 12:00:00 AM EST eCW1 ([facility]) Outpatient<td ID="encounterTypeDescripti onID0">EMERGENCY RM FOLU</td><td>Preet Galvan DO</td><td>Diego Carr MD [facility]</td><td>03/28/2020</td><td>1:05PM</td><td>1:56PM</td><td><content ID="encounterDiagnosisID0-0">Cataract Senile Nuclear</content>, <content ID="encounterDiagnosisID0-1">Vitreous Disorders Degeneration</content>, <content ID="encounterDiagnosisID0-2">Chorioretinal Scar</content>, <content ID="encounterDiagnosisID0-3">Retinal Tear</content></td> Attender: PREET Mi MD [facility] 03/28/2020 01:05:00 PM EST - 03/28/2020 01:56:00 PM EST Retinal TearChorioretinal ScarVitreous D isorders DegenerationCataract Senile Nuclear LYNN (Diego Jacinto MD [facility]) Retinal Tear 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 COVID-19 dose #1 given elsewhere Unspecified 06/30/2020 10:0 5:00 AM EDT completed eCW1 ([facility]) COVID-19 dose #1 given elsewhere Unspecified 06/30/2020 10:0 5:00 AM EDT completed eCW1 ([facility]) COVID-19 dose #1 given elsewhere Unspecified 06/30/2020 10:0 5:00 AM EDT completed eCW1 ([facility]) COVID-19 VACCINE Pfizer 06/23/2020 12:00:00 AM EST completed NYSIIS Vaccine Series Complete: NOThis Data was Submitted to [facility] Via [employer]. Medications Medication Brand Name Start Date Product [...] 1 active Rapaflo LYNN (Diego Jacinto MD [facility]) atorvastatin 10 MG Oral Tablet [Lipitor] Lipitor 10 MG Oral Tablet Lipitor 10 MG Oral Tablet 03/28/2020 12:00:00 AM EST 1 activ e atorvastatin 10 MG Oral Tablet [Lipitor] LYNN (Diego Jacinto MD [facility]) Insurance Providers Payer name Policy type / Coverage type Policy ID Covered republican ID Covered republican's relationship to solitario Policy Solitario Plan Information [facility] Health Plan Health Maintenance Organization (HMO) Referrals Req uired [id number] Family Dependent Referrals Required [facility] [id number] [facility] [id number] [facility] [employer] [id number] Self [id number] ANSI-Commercial [id number] ANSI-Commercial [id number] ANSI-Commercial [id number] ANSI-Commercial [id number] ANSI-Commercial [id number] ANSI-Commercial [id number] ANSI-Commercial [id number] [facility] Commercial [id number] Family Dependent [id number] [facility] O [id number] S [id number] [facility] Commercial [id number] Family Dependent THAIS TREVIZO [id number] SP [id number] P HEALTHCARE COMM O [id number] S [id number] P HEALTHCARE COMM O [id number] S [id number] [facility] HE[facility] CARE P UNAVAILABLE S UN AVAILABLE [facility]ARE [id number] SP [id number] ANSI-Commercial [id number] ANSI-Commercial [id number] Problems, Conditions, and Diagnoses Code Display Name Description Problem Type Effective Dates Data Source(s) M72.0 919025011 Dupuytren contracture Problem 08/03/2020 12: 00:00 AM EDT eCW1 ([facility]) N40.1 [id number] Benign prostatic hyperplasia wit h lower urinary tract symptoms Problem 08/03/2020 12:00:00 AM EDT eCW1 ([facility]) [id number] Erectile dysfunction Erectile dysfunction Problem 05/23/2020 12:00:00 AM EST MED[facility] ([facility]) 379.21 Vitreous Disorders Degeneration Vitreous Disorders Deg eneration Problem 03/28/2020 12:00:00 AM EST LYNN (Diego Jacinto MD [facility]) 366.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 Proble m 03/28/2020 12:00:00 AM EST LYNN (Diego Jacinto MD [facility]) 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 Bailon 03/23/2020 Surgical / procedural history Bicep Tendon Tear, Lower Back rods inserts 2013, Laser for retinal tear in the right eye by Dr. Bailon 03/23/2020 03/28/2020 12:00:00 AM EST LYNN (Diego Jacinto MD [facility]) Intermediate Eye Exam Established Patient Intermediate Eye Exam Established Patient 03/28/2020 12:00:00 AM EST LYNN (Calvin Jacinto MD [facility]) Results ID Date Data Source [id number] 05/11/2020 09:55:00 AM EST [facility] ([facility]) Name Value Range Interpretation Code Description Data Lesli rce(s) Supporting Document(s) Prostate specific Ag [Mass/volume] in Serum or Plasma 1.47 ng/mL MEDENT ([facility]) The PSA assay is performed on the Genia Photonicsta analyzer by [employer] sandwich chemiluminescent immunoassay and [...] Never Smoker completed Never S moker eCW1 ([facility]) Smoking 08/03/2020 12:00:00 AM EDT Never Smoker completed Never S moker eCW1 ([facility]) Smoking 08/03/2020 12:00:00 AM EDT Never Smoker completed Never S moker eCW1 ([facility]) Smoking 05/23/2020 12:00:00 AM EST Never Smoked Cigarettes com pleted Never Smoked Cigarettes MEDENT ([facility]) Smoking 03/28/2020 02:02:34 PM EST Never smoked tobacco (findi ng) completed Never smoked tobacco (finding) LYNN (Diego Jacinto MD [facility]) Vital Signs ID Date Data Source UNK Name Value Range Interpretation Code Description Data Source(s) Systolic blood pressure 134 mm[Hg] 134 mm[Hg] M EDENT ([facility]) Diastolic blood pressure 85 mm[Hg] 85 mm[Hg] MEDENT ([facility]) Heart rate 68 /min 68 /min MEDENT ([facility]) Body weight 210.00 [lb_av] 210.00 [lb_av] MEDEN T ([facility]) Body weight 207 [lb_av] 207 [lb_av] [facility]CW[facility] Body height 65 [in_i] 65 [in_i] eCW1 ([facility]) Body mass index (BMI) [Ratio] 34.44 kg/m2 34.44 kg/m2 W1 ([facility]) Heart rate 97 /min 97 /min eCW1 ([facility]) Respiratory rate 20 /min 20 /min eCW1 ([facility]) Body temperature 97.3 [degF] 97.3 [degF] eCW1 ( [facility]) Systolic blood pressure 142 mm[Hg] 142 mm[Hg] e CW1 ([facility]) Diastolic blood pressure 90 mm[Hg] 90 mm[Hg] eCW1 ([facility]) Body height 68 [in_i] 68 [in_i] MED[facility] ([facility] 5'8" Body weight 210.00 [lb_av] 210.00 [lb_av] MEDEN T ([facility]) Body weight 95.256 kg 95.256 kg [facility] ([facility]) Body mass index (BMI) [Ratio] 31.9 kg/m2 31.9 k g/m2 MEDENT ([facility])
--- NOTE | 2021-01-30 13:42 | REP ---
INDICATION: right scapula; right posterior rib pain; s/p fall COMPARISON: None. TECHNIQUE: AP and axial views of the scapula. FINDINGS: Scapula appears intact. Glenohumeral joint and acromioclavicular joint appear normal. No acute fracture or dislocation. Surrounding soft tissues are unremarkable. IMPRESSION: Normal scapula. No obvious injury. <Electronically signed by Antione Lua > 01/30/21 [id number]
--- NOTE | 2021-01-30 14:42 | REP ---
INDICATION: right scapula; right posterior rib pain; s/p fall COMPARISON: None. TECHNIQUE: Frontal view of the chest with multiple views of the right hemithorax. Six total views. FINDINGS: Frontal view of the chest demonstrates no acute cardiopulmonary process, contusion, effusion, or pneumothorax. Multiple views of the right hemithorax demonstrates no acute rib fracture/injury or pathology. IMPRESSION: No evidence for acute right rib fracture or pathology. <Electronically signed by Antione Lua > 01/30/21 [id number]
[2021-01-30 15:18] VITALS: BP 137/99
== END 2021-01-30 15:19 | disposition home or self-care (01) ==
LOC: M ED 11:27
DX: S01.01XA Laceration without foreign body of scalp, initial encounter (principal); S20.221A Contusion of right back wall of thorax, initial encounter; S40.011A Contusion of right shoulder, initial encounter; W17.89XA Other fall from one level to another, initial encounter; Y92.89 Other specified places as the place of occurrence of the external cause; E03.9 Hypothyroidism, unspecified; E78.5 Hyperlipidemia, unspecified; Z79.899 Other long term (current) drug therapy; Z79.890 Hormone replacement therapy; Z91.018 Allergy to other foods

== ENCOUNTER 2021-03-08 13:51 | Emergency (ER) | payer OTHER ==
[~2021-03-08] VITALS: Ht 172.7 cm; Wt 97.3 kg
[~2021-03-08 13:51] MED LIST changes: +ADV100INH
[2021-03-08] MEDS ORDERED: APAP325T4 PO (14:03)
[2021-03-08] MEDS ORDERED: ALBUTEROL SULFATE 2.5 MG/0.5 ML INH NEB SOLN INH PRN ×2 (14:25→14:35)
[2021-03-08] MEDS ORDERED: NS 1,000 ML IV SCH ×2 (14:25→14:35)
[2021-03-08] MEDS ORDERED: ACETAMINOPHEN TAB 650MG DOSE (2X325MG) PO ONE ×2 (14:25→14:35)
[2021-03-08] MEDS ORDERED: methylPREDNISolone 125MG 2ML VIAL IV ONE ×2 (14:25→14:35)
[2021-03-08] MEDS ORDERED: diphenhydrAMINE 50MG/ML VIAL (J1200) IV PRN ×2 (14:25→14:35)
[2021-03-08] MEDS ORDERED: ACETAMINOPHEN TAB 650MG DOSE (2X325MG) PO PRN ×2 (14:25→14:35)
[2021-03-08] MEDS ORDERED: diphenhydrAMINE 25MG CAP PO ONE ×2 (14:25→14:35)
[2021-03-08] MEDS ORDERED: ALBUTEROL 90 MCG/ACT 8GM HFA INHALER INH PRN ×2 (14:25→14:35)
[2021-03-08] MEDS ORDERED: EPINEPHrine INJ 1 MG/ML 1ML AMP IM PRN ×2 (14:25→14:35)
[2021-03-08] MEDS ORDERED: methylPREDNISolone 125MG 2ML VIAL IV PRN ×2 (14:25→14:35)
[2021-03-08 15:24] LABS: RSV AMPLIFICATION NEGATIVE (NEGATIVE)
[2021-03-08] MEDS ORDERED: CASIRIVIMAB/IMDEVIMAB 1,200 MG in NS 250 ML IV ONE (17:15)
[2021-03-08] MEDS: CASIRIVIMAB (REGN10933) 600 MG, IMDEVIMAB (REGN10987) 600 MG in NS 250 ML IV ONE ×2 (18:00→18:41)
[2021-03-08 18:41] VITALS: BP 118/77
[2021-03-08 21:02] VITALS: BP 128/74
== END 2021-03-08 21:35 | disposition home or self-care (01) ==
LOC: M ED 13:51
DX: U07.1 COVID-19 (principal); J45.909 Unspecified asthma, uncomplicated; Z79.899 Other long term (current) drug therapy; Z91.018 Allergy to other foods
CPT/HCPCS: 87631; 93005; 96365; 96375; 99285; J2930

== ENCOUNTER → 2021-05-22 | Outpatient (REF) | payer OTHER ==
[~2021-05-22] MED LIST changes: +APAP325T4 PO
== END ==
LOC: M LABDRWAD 12:41
PROVIDERS: ATTEND Urology
DX: Z12.5 Encounter for screening for malignant neoplasm of prostate (principal)

== ENCOUNTER → 2021-07-02 | Outpatient (REF) | payer OTHER ==
[2021-07-02 12:54] LABS: BASO # 0.1 10^3/uL (0.0-0.2); BASO % 1.2 % (0.0-1.0); EOS # 0.2 10^3/uL (0.0-0.5); EOS % 3.6 % (0.0-3.0); HEMATOCRIT 45.8 % (42.0-52.0); HEMOGLOBIN 15.8 g/dl (13.5-17.5); LYMPH # 1.8 10^3/uL (1.5-5.0); LYMPH % 27.8 % (24.0-44.0); MEAN CORPUSCULAR HEMOGLOBIN 31.3 pg (27.0-33.0); MEAN CORPUSCULAR HGB CONC 34.5 g/dl (32.0-36.5); MEAN CORPUSCULAR VOLUME 90.9 fl (80.0-96.0); MONO # 0.6 10^3/uL (0.0-0.8); MONO % 9.5 % (2.0-8.0); NEUTROPHILS # 3.7 10^3/uL (1.5-8.5); NEUTROPHILS % 57.4 % (36.0-66.0); PLATELET COUNT, AUTOMATED 269 10^3/uL (150-450); RED BLOOD COUNT 5.04 10^6/uL (4.30-6.10); WHITE BLOOD COUNT 6.4 10^3/uL (4.0-10.0)
[2021-07-02 13:51] LABS: ALBUMIN 4.1 GM/DL (3.2-5.2); ALT/SGPT 33 U/L (12-78); BILIRUBIN,TOTAL 0.6 MG/DL (0.2-1.0); BLOOD UREA NITROGEN 20 MG/DL (7-18); CALCIUM LEVEL 9.3 MG/DL (8.8-10.2); CARBON DIOXIDE LEVEL 31 MEQ/L (21-32); CHLORIDE LEVEL 108 MEQ/L (98-107); CHOLESTEROL LEVEL 158 MG/DL (<200); CHOLESTEROL RISK RATIO 3.291 (<5); CREATININE FOR GFR 0.92 MG/DL (0.70-1.30); FREE T4 0.94 NG/DL (0.76-1.46); GLOMERULAR FILTRATION RATE > 60.0 (>49); GLUCOSE, FASTING 81 MG/DL (70-100); HDL CHOLESTEROL 48 MG/DL (>40); LDL CHOLESTEROL 82 MG/DL (<100); NON-HDL-C 110 MG/DL; SODIUM LEVEL 142 MEQ/L (136-145); TOTAL PROTEIN 6.6 GM/DL (6.4-8.2); TRIGLYCERIDES LEVEL 142 MG/DL (<150)
== END ==
LOC: M LABDRWAD 12:19
PROVIDERS: ATTEND Nurse Practitioner Family
DX: E78.2 Mixed hyperlipidemia (principal); E03.9 Hypothyroidism, unspecified

== ENCOUNTER → 2021-09-24 | Outpatient (CLI) | payer OTHER ==
[~2021-09-24] MED LIST changes: -ADV100INH; +D 1010002 PO; +IBUP-1022 PO; +VITA-243 PO
== END ==
LOC: M LABSMTC 09:40
PROVIDERS: ATTEND Anesthesiology
DX: Z01.812 Encounter for preprocedural laboratory examination (principal); Z20.822 Contact with and (suspected) exposure to COVID-19

== ENCOUNTER 2021-09-27 08:37 | Day surgery (SDC) | payer OTHER ==
[~2021-09-27] VITALS: Ht 172.7 cm; Wt 90.6 kg
[~2021-09-27 08:37] MED LIST changes: +NS 1,000 ML IV ONE
[2021-09-27] MEDS ORDERED: propofoL 200 MG/20 ML VIAL As Ordered ONE (08:58)
[2021-09-27] MEDS ORDERED: LIDOCAINE 2% INJ 100 MG/5 ML SYRINGE As Ordered ONE (08:58)
[2021-09-27 10:30] VITALS: BP 164/95
== END 2021-09-27 10:40 | disposition home or self-care (01) ==
LOC: M OPP 08:37
PROVIDERS: ATTEND Surgery
DX: Z12.11 Encounter for screening for malignant neoplasm of colon (principal); Z79.02 Long term (current) use of antithrombotics/antiplatelets; Z79.1 Long term (current) use of non-steroidal anti-inflammatories (NSAID); Z79.52 Long term (current) use of systemic steroids; Z79.899 Other long term (current) drug therapy; Z91.018 Allergy to other foods

== ENCOUNTER → 2021-12-19 | Outpatient (CLI) | payer OTHER ==
[~2021-12-19] MED LIST changes: -NS 1,000 ML IV ONE
[2021-12-19 18:05] LABS: FREE T4 0.97 NG/DL (0.76-1.46); THYROID STIMULATING HORMONE 3.62 uIU/ML (0.358-3.740)
== END ==
LOC: M ADAMS 14:52
PROVIDERS: ATTEND Nurse Practitioner Family
DX: E03.9 Hypothyroidism, unspecified (principal)

== ENCOUNTER → 2022-03-21 | Outpatient (CLI) | payer OTHER | LOC: M SOG 08:49 | PROVIDERS: ATTEND Orthopaedic Surgery | DX: M43.16 Spondylolisthesis, lumbar region (principal); M43.26 Fusion of spine, lumbar region ==

== ENCOUNTER → 2022-03-27 | Outpatient (CLI) | payer OTHER | LOC: M RAD 08:17 | PROVIDERS: ATTEND Orthopaedic Surgery | DX: M47.16 Other spondylosis with myelopathy, lumbar region (principal) ==

== ENCOUNTER → 2022-04-04 | Outpatient (CLI) | payer OTHER | LOC: M SOG 07:55 | PROVIDERS: ATTEND Orthopaedic Surgery | DX: M50.30 Other cervical disc degeneration, unspecified cervical region (principal); M43.12 Spondylolisthesis, cervical region ==

== ENCOUNTER → 2022-04-17 | Outpatient (CLI) | payer OTHER | LOC: M PLAIMG 13:35 | PROVIDERS: ATTEND Orthopaedic Surgery | DX: M47.16 Other spondylosis with myelopathy, lumbar region (principal); M43.16 Spondylolisthesis, lumbar region ==

== ENCOUNTER → 2022-05-31 | Outpatient (REF) | payer OTHER | LOC: M LABDRWAD 14:33 | PROVIDERS: ATTEND Urology | DX: Z12.5 Encounter for screening for malignant neoplasm of prostate (principal) ==

== ENCOUNTER → 2022-09-02 | Outpatient (REF) | payer OTHER ==
[~2022-09-02] MED LIST changes: +FLUT50SP17; -FLUTISP
[2022-09-02 13:56] LABS: FREE T4 1.39 NG/DL (0.89-1.76); THYROID STIMULATING HORMONE 3.499 uIU/ML (0.55-4.78)
== END ==
LOC: M LABDRWAD 12:29
PROVIDERS: ATTEND Nurse Practitioner Family
DX: E03.9 Hypothyroidism, unspecified (principal)

== ENCOUNTER 2022-11-15 22:36 | Emergency (ER) | payer OTHER ==
[~2022-11-15] VITALS: Ht 172.7 cm; Wt 99.9 kg
[2022-11-16] MEDS ORDERED: methylPREDNISolone 125MG 2ML VIAL IM ONE (03:10)
[2022-11-16] MEDS ORDERED: MEDR4PAK PO (04:13)
[2022-11-16] MEDS ORDERED: PERCOCET 5MG/325MG TAB PO ONE (04:15)
[2022-11-16] MEDS ORDERED: OXYCODONE/APAP 5MG/325MG(HOME DOSE PACK) PO ONE (04:15)
[2022-11-16 04:46] VITALS: BP 128/84; TEMP 98.2; O2SAT 99
== END 2022-11-16 04:48 | disposition home or self-care (01) ==
LOC: M ED 22:36
DX: M75.32 Calcific tendinitis of left shoulder (principal); J44.9 Chronic obstructive pulmonary disease, unspecified; E78.5 Hyperlipidemia, unspecified; E03.9 Hypothyroidism, unspecified; Z91.018 Allergy to other foods; Z79.899 Other long term (current) drug therapy
CPT/HCPCS: 73030; 96372; 99283; J2930

== ENCOUNTER → 2023-02-13 | Outpatient (REF) | payer OTHER ==
[~2023-02-13] MED LIST changes: +MEDR4PAK PO
[2023-02-13 14:17] LABS: BASO # 0.1 10^3/uL (0.0-0.2); BASO % 1.1 % (0.0-1.0); EOS # 0.3 10^3/uL (0.0-0.5); EOS % 3.9 % (0.0-3.0); HEMATOCRIT 47.6 % (42.0-52.0); HEMOGLOBIN 16.1 g/dl (13.5-17.5); LYMPH # 1.6 10^3/uL (1.5-5.0); LYMPH % 22.1 % (24.0-44.0); MEAN CORPUSCULAR HEMOGLOBIN 30.9 pg (27.0-33.0); MEAN CORPUSCULAR HGB CONC 33.8 g/dl (32.0-36.5); MEAN CORPUSCULAR VOLUME 91.4 fl (80.0-96.0); MONO # 0.8 10^3/uL (0.0-0.8); MONO % 10.5 % (2.0-8.0); NEUTROPHILS # 4.4 10^3/uL (1.5-8.5); PLATELET COUNT, AUTOMATED 255 10^3/uL (150-450); RED BLOOD COUNT 5.21 10^6/uL (4.30-6.10); WHITE BLOOD COUNT 7.1 10^3/uL (4.0-10.0)
[2023-02-13 14:44] LABS: ALBUMIN 3.9 G/DL (3.2-5.2); ALKALINE PHOSPHATASE 53 U/L (46-116); ALT/SGPT 42 U/L (7.0-40); AST/SGOT 21 U/L (<34); BILIRUBIN,TOTAL 0.6 MG/DL (0.3-1.2); BLOOD UREA NITROGEN 19 MG/DL (9-23); CALCIUM LEVEL 9.1 MG/DL (8.3-10.6); CARBON DIOXIDE LEVEL 29 MMOL/L (20-31); CHLORIDE LEVEL 106 MMOL/L (98-107); CHOLESTEROL LEVEL 178 MG/DL (<200); CHOLESTEROL RISK RATIO 3.86 (<5); CREATININE FOR GFR 0.87 MG/DL (0.70-1.30); GLOMERULAR FILTRATION RATE > 60.0 (>49); GLUCOSE, FASTING 88 MG/DL (74-106); HDL CHOLESTEROL 46.1 MG/DL (>40); LDL CHOLESTEROL 101.1 MG/DL (<100); NON-HDL-C 131.9 MG/DL; POTASSIUM SERUM 4.2 MMOL/L (3.5-5.1); SODIUM LEVEL 143 MMOL/L (136-145); TOTAL PROTEIN 6.6 G/DL (5.7-8.2); TRIGLYCERIDES LEVEL 154 MG/DL (<150)
[2023-02-13 14:45] LABS: THYROID STIMULATING HORMONE 4.533 uIU/ML (0.55-4.78)
[2023-02-13 14:46] LABS: FREE T4 0.94 NG/DL (0.89-1.76)
== END ==
LOC: M LABDRWAD 12:59
PROVIDERS: ATTEND Nurse Practitioner Family
DX: E03.9 Hypothyroidism, unspecified (principal); E78.2 Mixed hyperlipidemia

== ENCOUNTER → 2023-05-28 | Outpatient (REF) | payer OTHER ==
[~2023-05-28] MED LIST changes: -FLUT50SP17; +FLUTISP
== END ==
LOC: M LABDRWAD 16:43
PROVIDERS: ATTEND Urology
DX: N40.1 Benign prostatic hyperplasia with lower urinary tract symptoms (principal)
CPT/HCPCS: 36415; G0103

== ENCOUNTER → 2024-02-11 | Outpatient (REF) | payer OTHER ==
[~2024-02-11] MED LIST changes: -VITA500C19 PO; +VITA500C22 PO
[2024-02-11 13:39] LABS: BASO # 0.1 10^3/uL (0.0-0.2); BASO % 1.1 % (0.0-1.0); EOS # 0.4 10^3/uL (0.0-0.5); EOS % 4.9 % (0.0-3.0); HEMATOCRIT 46.1 % (42.0-52.0); HEMOGLOBIN 15.5 g/dl (13.5-17.5); LYMPH # 1.5 10^3/uL (1.5-5.0); LYMPH % 21.5 % (24.0-44.0); MEAN CORPUSCULAR HEMOGLOBIN 31.2 pg (27.0-33.0); MEAN CORPUSCULAR HGB CONC 33.6 g/dl (32.0-36.5); MEAN CORPUSCULAR VOLUME 92.8 fl (80.0-96.0); MONO # 0.6 10^3/uL (0.0-0.8); MONO % 8.8 % (2.0-8.0); NEUTROPHILS # 4.5 10^3/uL (1.5-8.5); NEUTROPHILS % 63.4 % (36.0-66.0); PLATELET COUNT, AUTOMATED 255 10^3/uL (150-450); RED BLOOD COUNT 4.97 10^6/uL (4.30-6.10); WHITE BLOOD COUNT 7.2 10^3/uL (4.0-10.0)
[2024-02-11 13:42] LABS: ALBUMIN 3.9 G/DL (3.2-5.2); ALKALINE PHOSPHATASE 52 U/L (40-129); ALT/SGPT 37 U/L (7.0-40); AST/SGOT 17 U/L (<34); BILIRUBIN,TOTAL 0.5 MG/DL (0.3-1.2); BLOOD UREA NITROGEN 23 MG/DL (9-23); CALCIUM LEVEL 9.4 MG/DL (8.3-10.6); CARBON DIOXIDE LEVEL 29 MMOL/L (20-31); CHLORIDE LEVEL 109 MMOL/L (98-107); CHOLESTEROL LEVEL 162 MG/DL (<200); CHOLESTEROL RISK RATIO 3.87 (<5); CREATININE FOR GFR 0.96 MG/DL (0.70-1.30); GLOMERULAR FILTRATION RATE > 60.0 (>49); GLUCOSE, FASTING 94 MG/DL (74-106); HDL CHOLESTEROL 41.8 MG/DL (>40); LDL CHOLESTEROL 95.6 MG/DL (<100); NON-HDL-C 120.2 MG/DL; POTASSIUM SERUM 4.2 MMOL/L (3.5-5.1); SODIUM LEVEL 142 MMOL/L (136-145); TOTAL PROTEIN 6.5 G/DL (5.7-8.2); TRIGLYCERIDES LEVEL 123 MG/DL (<150)
[2024-02-11 13:52] LABS: THYROID STIMULATING HORMONE 3.019 uIU/ML (0.55-4.78)
[2024-02-11 13:54] LABS: FREE T4 1.21 NG/DL (0.89-1.76)
[2024-02-11 13:56] LABS: HEMOGLOBIN A1c 5.7 % (4.0-6.0)
== END ==
LOC: M LABDRWAD 12:56
PROVIDERS: ATTEND Registered Nurse
DX: Z00.00 Encounter for general adult medical examination without abnormal findings (principal); E03.9 Hypothyroidism, unspecified; E78.2 Mixed hyperlipidemia

== ENCOUNTER → 2024-06-07 | Outpatient (REF) | payer OTHER ==
[~2024-06-07] MED LIST changes: -ADV100INH INH; +ADVA1AER8 INH
== END ==
LOC: M LABDRWAD 17:34
PROVIDERS: ATTEND Urology
DX: Z12.5 Encounter for screening for malignant neoplasm of prostate (principal)